=== PATIENT | male | born 1950 | race Caucasian/White ===

== ENCOUNTER 2025-01-03 14:37 | Emergency (ER) | payer OTHER | END 2025-01-03 19:23 | disposition home or self-care (01) | LOC: JP.ED 14:37 | DX: S62.525A Nondisplaced fracture of distal phalanx of left thumb, initial encounter for closed fracture (principal); Z88.1 Allergy status to other antibiotic agents; Z86.16 Personal history of COVID-19; Z90.49 Acquired absence of other specified parts of digestive tract; Z87.891 Personal history of nicotine dependence; W23.1XXA Caught, crushed, jammed, or pinched between stationary objects, initial encounter; Y93.89 Activity, other specified | CPT/HCPCS: 73140; 99283; A9270 ==